=== PATIENT | male | born 1975 | race Hispanic/Latino ===

== ENCOUNTER 2017-08-28 15:29 | Emergency (ER) | payer SELFPAY ==
[~2017-08-28] VITALS: Ht 152.4 cm; Wt 54.0 kg
[2017-08-28 15:49] VITALS: BP 123/70
[2017-08-28 16:53] LABS: HEMATOCRIT 43.9 % (39.0-50.0); IMMATURE GRANULOCYTES 0.5 % (0.0-1.0); MEAN CELL VOLUME 92.2 fL CALC (80.0-100.0); MEAN CORPUSCULAR HGB 31.5 pG CALC (26.0-32.0); MEAN CORPUSCULAR HGB CONC 34.2 g/L CALC (32.0-36.0); NEUT# 15.01 thou/uL (1.82-7.42); RED BLOOD COUNT 4.76 mill/uL (4.70-6.10); RED CELL DISTRI WIDTH 12.6 % (11.5-15.5)
[2017-08-28 17:15] LABS: ALBUMIN 4.7 g/dL (3.2-5.0); ALKALINE PHOSPHATASE 116 u/l (38-126); ANION GAP 17 (6-22 (CALC)); BILIRUBIN, TOTAL 0.7 mg/dL (0.0-1.4); BUN 12 mg/dL (9-20); BUN/CREATININE RATIO 15 (12-20 (CALC)); CALCIUM 10.1 mg/dL (8.4-10.2); CARBON DIOXIDE 23 mmol/l (22-30); CHLORIDE 103 mmol/l (95-108); CREATININE 0.8 mg/dL (0.7-1.3); GFR > 60 ML/MIN (>=60 (CALC)); GFR FOR AFR.AMER. > 60 ML/MIN (>=60 (CALC)); GLUCOSE 107 mg/dL (75-110); POTASSIUM 4.4 mmol/l (3.5-5.1); SGOT/AST 36 u/l (17-59); SGPT/ALT 34 u/l (21-72); SODIUM 139 mmol/l (137-146); TOTAL PROTEIN 7.9 g/dL (6.3-8.2)
[2017-08-28] MEDS ORDERED: AUGMENTIN500TAB PO (17:54)
[2017-08-28] MEDS ORDERED: SEPTRA4001 PO (17:54)
== END 2017-08-28 18:41 | disposition left against medical advice (07) | DRG 603 ==
LOC: ED 15:29 → ED-I 17:20 → ED 18:41
PROVIDERS: Emergency Medicine
DX: L03.116 Cellulitis of left lower limb (principal); R50.9 Fever, unspecified; Z91.19 Patient's noncompliance with other medical treatment and regimen